=== PATIENT | female | born 1970 | race Caucasian/White ===

== ENCOUNTER → 2016-09-19 | Outpatient (CLI) | payer BC ==
[~2016-09-19] MED LIST: ALLEGRA ALLERG180 MG PO; ASPIR-LOW81 MG PO; BENADRYL50 MG PO; BIOTIN PO; EPIPEN ADU0.3 MG/0.3 IM; FLOVENT 11120 INHALA IH; FOLIC ACID1 MG PO; LANSOPRAZOLE30 MG PO; LOSARTAN-HCTZ1 EACH PO; NAPROXEN SODIU220 M1 PO; NEURONTIN300 MG PO; ONE-A-DAY WOME1 EAC1 PO; THIAMINE HCL100 MG PO; VITAMIN D33000 UNIT PO; ZYRTEC10 M3 PO
== END | disposition home or self-care (01) ==
LOC: CDC 09:56
DX: I45.4 Nonspecific intraventricular block (principal); R94.31 Abnormal electrocardiogram [ECG] [EKG]; M25.561 Pain in right knee
CPT/HCPCS: 93000

== ENCOUNTER → 2017-08-03 | Outpatient (CLI) | payer OTHER | END | disposition home or self-care (01) | LOC: CDC 10:26 | DX: Z01.810 Encounter for preprocedural cardiovascular examination (principal); M50.222 Other cervical disc displacement at C5-C6 level; R94.31 Abnormal electrocardiogram [ECG] [EKG] | CPT/HCPCS: 93000 ==